=== PATIENT | male | born 1965 ===

== ENCOUNTER 2017-09-04 10:42 | Emergency (ER) | payer OTHER, MEDICAID ==
--- NOTE | 2017-09-04 11:20 | EDPHY ---
General Time Seen by Provider: 09/04/17 11:15 Narrative: CHIEF COMPLAINT: Cough, possible for test this exposure HISTORY OF PRESENT ILLNESS: Patient presents with complaints of cough. Cough started approximately 2 weeks ago and has been worsening over the past 2 days. No fever. Occasionally productive. Some wheezing. No distress or shortness of breath. The concern is that he lives with the patient with a reportedly positive Bordetella pertussis within the past 2 weeks. They live in close encounters to 1 another. The patient also has left renal transplant on prednisone and tacrolimus. The printing engineer provides all the information as the patient does have developmental delay. He has reports of no chest pain. No other associated complaints or modifying factors. REVIEW OF SYSTEMS: Ten systems reviewed and are negative unless otherwise noted in the HPI PCP: Dr. Munroe SPECIALISTS: Dr. Montero, nephrology PAST MEDICAL HISTORY: End-stage renal disease status post transplant. No longer requiring dialysis. Developmental delay, cerebral palsy, osteoarthritis, PAST SURGICAL HISTORY: Multiple. No recent surgery and no pertinent surgery SOCIAL HISTORY: Never smoker. Lives with 24 hr printing engineer and roommate FAMILY HISTORY: Noncontributory EXAMINATION General Appearance: Alert, no distress. Well-developed well-nourished. Head: normocephalic, atraumatic Eyes: Pupils equal and round, no conjunctival pallor or injection ENT, Mouth: Mucous membranes moist. Airway widely patent. Neck: Normal inspection, supple, non-tender Respiratory: Mild expiratory wheezing. No rhonchi. No crackles. No diminishment or consolidation. No distress Cardiovascular: Regular rate and rhythm. No murmur Gastrointestinal: Abdomen is soft and nontender Back: non-tender, no bony abnormalities Neurological: Alert to baseline. Strength is symmetric in the 4 extremities. Normal steady gait with assistive devices. Skin: Warm and dry, no rash Extremities: Nontender, no pedal edema Psychiatric: Mood and affect normal DIFFERENTIAL DIAGNOSES: Including but not limited to Bordetella pertussis, pneumonia, asthma, bronchitis MDM: 11:20 a.m. Cough of nearly 2 weeks duration with increasing cough over the past 2 days. He does have some wheezing throughout but he is in no acute distress put vital signs are within normal limits. The concern from the caretakers that there was a positive case of pertussis in the last 2 weeks in his care home. He has reported allergy to Zithromax and the concern is also his renal transplant as he has been told to avoid some antibiotics by his jig bore operator, but they do not know which ones. He is awake alert no acute distress. Chest x-ray is pending. Respiratory pathogen panel pending. 11:35 a.m. Chest x-ray read as no focal pneumonia. I have discussed with Dr. Perez and he recommends consultation of infectious disease due to the complicated nature. 11:45 a.m. Case discussed with Dr. Haney. We discussed the patient's history, renal transplant and documented allergy to Zithromax. She recommends doxycycline 100 mg twice daily. She states that this must be taken separately from his magnesium and/or calcium is taking. Or to hold the magnesium her calcium while taking the doxycycline. 11:55 a.m. Case discussed with patient's primary care physician Dr. Munroe. We discussed the current therapy and recommend follow-up in 1 week. He will follow up with the patient accordingly. 12:00 p.m. Patient re-evaluated. The caretakers requesting that we consult Nephrology regarding the doxycycline out will do so. 12:05 p.m. Case discussed with Dr. Oliva, Nephrology. We discussed the doxycycline and his current prograf. She recommends calling the [place] office to check Prograf level Monday morning. 12:10 p.m. Patient re-evaluated. I have discussed the doxycycline and avoiding magnesium and calcium. I have discussed albuterol inhaler as needed. I discussed close follow-up with primary care physician and Nephrology. He will need see Nephrology Monday morning 4 tacrolimus level. We discussed that he may need further medication after the 7 days provided if his symptoms are not resolved and he has a positive pertussis test. We discussed ED precautions for worsening symptoms. I have answered all their questions. He is discharged home stable condition with a pending respiratory pathogen panel. I have the patient's permission to leave information regarding this test on his cell phone 1:30 p.m. Respiratory pathogen panel has returned with no organisms detected. A contacted the patient and his printing engineer and informed the this. Continue with previous plan. SUPERVISION: Patient was independently examined, but I discussed the case with my secondary supervising physician Dr. Perez Infectious disease consultation by telephone with Dr. Majo Haney - Diagnostics Imaging Results: Imaging Impressions Chest X-Ray 09/04/17 11:09 Impression: 1. No acute pneumonia identified. 2. Chronic micronodular lung disease, possibly representing metastatic calcification in a patient with a history of chronic renal failure and renal transplantation. - History Smoking Status: Never smoked - Objective Vital Signs: Initial Vital Signs Temperature (C) 98.2 F 09/04/17 10:47 Heart Rate 64 09/04/17 10:47 Respiratory Rate 18 09/04/17 10:47 Blood Pressure 156/99 H 09/04/17 10:47 O2 Sat (%) 96 09/04/17 10:47 O2 Delivery Mode Room Air Allergies/Adverse Reactions: codeine Allergy (Severe, Verified 09/04/17 10:45) Anaphylaxis oxycodone [Oxycodone] Allergy (Severe, Verified 09/04/17 10:45) Anaphylaxis phenytoin sodium [From Dilantin] Allergy (Severe, Verified 09/04/17 10:45) Other-Enter Comments phenytoin sodium extended [From Dilantin] Allergy (Severe, Verified 09/04/17 10: 45) Other-Enter Comments morphine [Morphine] Allergy (Mild, Verified 09/04/17 10:45) Other-Enter Comments aspirin [Aspirin] Allergy (Unknown, Verified 09/04/17 10:45) Unknown azithromycin Allergy (Unknown, Verified 09/04/17 10:45) Other-Enter Comments lamotrigine [From Lamictal] Allergy (Unknown, Verified 09/04/17 10:45) Unknown levetiracetam [From Keppra] Allergy (Unknown, Verified 09/04/17 10:45) Unknown NSAIDS (Non-Steroidal Anti-Inflamma [Nsaids] Allergy (Unknown, Verified 10:45) Unknown ALL BLOOD THINNERS Allergy (Unknown, Uncoded 06/07/11 17:20) Unknown Home Medications: Medication Instructions Recorded Alendronate Sodium [Fosamax 70 MG 70 mg PO MO@07 06/07/11 (*)] Carvedilol [Coreg (*)] 3.125 mg PO BIDMEAL 06/07/11 Cetirizine [ZyrTEC 10 mg (*)] 10 mg PO DAILY 06/07/11 Cholecalciferol Vit D3 [Vitamin D3 2,000 units PO DAILY@1800 06/07/11 (*)] OXcarbazepine [Trileptal 300mg (*)] 600 mg PO 0800,209906/07/11 Omeprazole [Prilosec 20 mg] 20 mg PO DAILY 06/07/11 Tacrolimus [Prograf] 2 mg PO DAILY 06/07/11 diphenhydrAMINE [Benadryl 25 MG 25 mg PO BID 06/07/11 (*)] predniSONE 7.5 mg PO DAILY 06/07/11 Acetaminophen [Tylenol 325mg (*)] 650 mg PO Q6 PRN 07/10/13 Desonide 0.05% [Desonide 0.05% 1 enzo TP BID PRN 07/10/13 Cream (*)] Docusate Sodium [Colace 100 MG (*)] 100 - 300 mg PO DAILY PRN 07/10/13 Hydrocortisone 1% [Hydrocortisone 1 enzo TP DAILY PRN 07/10/13 1% cream (*)] Ketoconazole 2% [Nizoral 2% Cream 1 enzo TP BID PRN 07/10/13 (*)] Lactulose [Cephulac 20 gm/30 ml 15 - 30 gm PO DAILY PRN 07/10/13 oral soln (*)] Magnesium Oxide [Magnesium Oxide 400 mg PO TIDMEAL 07/10/13 400 mg (*)] Miconazole Nitrate [Desenex] 1 enzo TP DAILY PRN 07/10/13 Neomy Sulf/Bacitrac Zn/Poly 1 enzo TP DAILY PRN 07/10/13 [Triple Antibiotic Oint tube (*)] Prochlorperazine Maleate 10 mg PO Q6 PRN 07/10/13 [Compazine 10mg (*)] Tears/Hypromellose [Natural 1 drop EACHEYE PRN PRN 07/10/13 Balance (OTC)] diphenhydrAMINE [Benadryl Cream] 1 enzo TP DAILY PRN 07/10/13 guaiFENesin/DEXTROMETHORPHAN 10 ml PO Q6 PRN 07/10/13 [Robitussin Dm Oral Liquid (*)] Mycophenolate Sodium [Myfortic] 360 mg PO 0900,209903/07/14 Potassium Citrate [Urocit-K 10meq 20 meq PO HS 03/07/14 (*)] Potassium Citrate [Urocit-K 10meq 30 meq PO DAILY 03/07/14 (*)] Tacrolimus [Prograf] 3 mg PO HS 03/07/14 Cholecalciferol (Vitamin D3) 2,000 unit PO DAILY 03/10/14 [Vitamin D3] Albuterol [Proventil Inhaler HFA 1 - 2 puffs IH Q4H PRN #1 mdi 09/04/17 (*)] Doxycycline Hyclate 100 mg PO BID #13 capsule 09/04/17 Microbiology Results: MICROBIOLOGY 09/04/17 11:25 Nasal, Sinus - Swab Respiratory Panel (PCR) - Final No Organism Detected Medications Given: Discontinued Medications Doxycycline Hyclate (Doxycycline Hyclate) 100 mg PO EDNOW ONE PRN Reason: Protocol Stop: 09/04/17 11:52 Last Admin: 09/04/17 12:05 Dose: 100 mg Departure - Departure Disposition: Home, Routine, Self-Care Clinical Impression: Pertussis exposure, Renal transplant recipient Acute bronchitis Qualifiers: Bronchitis organism: unspecified organism Qualified Code(s): J20.9 - Acute bronchitis, unspecified Condition: Good Instructions: Acute Bronchitis (ED), Pertussis (ED), Postexposure Prophylaxis ( ED) Additional Instructions: 1. Doxycycline twice daily for 7 days. Do not take with magnesium or calcium supplements. You must wait 2 hr between the medications. Or you may hold the magnesium and calcium. 2. Albuterol inhaler. 1-2 puffs every 4 hr as needed for wheezing 3. Follow up with primary care physician within 1 week 4. ED precautions as discussed 5. You have a respiratory pathogen panel that is pending. I will contact you with the results later this afternoon. Referrals: Bruno Munroe DO [Primary Care Provider] - As per Instructions Prescriptions: Albuterol [Proventil Inhaler HFA (*)] 1 - 2 puffs IH Q4H PRN #1 mdi PRN Reason: Short Of Breath/Dyspnea Doxycycline Hyclate 100 mg PO BID #13 capsule
[2017-09-04] MEDS ORDERED: DOXYCYCLINE HYCLATE 100 MG CAP/TAB PO ONE (11:51)
[2017-09-04 12:09] VITALS: BP 150/80
== END 2017-09-04 12:31 | disposition home or self-care (01) ==
DX: J20.9 Acute bronchitis, unspecified (principal)

== ENCOUNTER 2018-03-03 09:33 | Emergency (ER) | payer OTHER, MEDICAID ==
[2018-03-03 09:49] VITALS: BP 128/88
--- NOTE | 2018-03-03 10:18 | EDPHY ---
H & P Time Seen by Provider: 03/03/18 09:38 HPI/ROS: CHIEF COMPLAINT: Bruising to flank HISTORY OF PRESENT ILLNESS: Per caregiver, patient with bruises to right flank/ axillary area noticed today while in the shower. Patient was unaware of these bruises and complains of no pain. Patient did have a rash more anterior but in the same general region as this area of ecchymosis on Monday. They applied hydrocortisone cream and rash had disappeared by . Patient denies any trauma. Patient did have to dizzy spells, which are not unusual for him, over the last several days with the most recent 1 on strategic planning manager. Currently no dizziness, headache, fevers, chills. Patient has no nausea, vomiting, diarrhea, abdominal pain. No report of blood per rectum or in vomit. Patient without dysuria. Patient with complex past medical history including kidney transplant 2010. He did have baseline labs drawn per Dr. Montero 3 weeks ago. He had platelets of 102 at that time which is near baseline. Hemoglobin hematocrit were 15 and 44 respectively %period% creatinine 1.1. No new medications reported. Contents of 10 point review of systems otherwise negative except for what is mentioned in HPI. General Appearance: Alert, no distress. Eyes: Pupils equal and round no pallor or injection. ENT, Mouth: Mucous membranes moist. Respiratory: There are no retractions, lungs are clear to auscultation. No tenderness to chest wall. No crepitus. Several small scattered bruises to right lateral chest wall. Appear days old. Cardiovascular: Regular rate and rhythm. Gastrointestinal: Abdomen is soft and nontender, no masses, bowel sounds normal. Neurological: Awake and alert, movement all 4 extremities, at baseline with developmental delay. Skin: Warm and dry, no rashes. Musculoskeletal: Neck is supple nontender. Extremities are symmetrical, baseline range of motion. Orthotics to both lower extremities. Psychiatric: Patient is cooperative. Medical/surgical history: Cerebral palsy with developmental delay. Left renal transplant 2010. Dialysis prior to transplant. Kidney stones. Right hip replacement 2009. Seizure disorder. Social history: Lives in retirement. Nonsmoker. Smoking Status: Never smoked Constitutional: Initial Vital Signs Temperature (C) 37 C 03/03/18 09:41 Heart Rate 62 03/03/18 09:41 Respiratory Rate 16 03/03/18 09:41 Blood Pressure 128/88 H 03/03/18 09:41 O2 Sat (%) 99 03/03/18 09:41 O2 Delivery Mode Room Air Allergies/Adverse Reactions: codeine Allergy (Severe, Verified 03/03/18 09:51) Anaphylaxis oxycodone [Oxycodone] Allergy (Severe, Verified 03/03/18 09:51) Anaphylaxis phenytoin sodium [From Dilantin] Allergy (Severe, Verified 03/03/18 09:51) Other-Enter Comments phenytoin sodium extended [From Dilantin] Allergy (Severe, Verified 03/03/18 09: 51) Other-Enter Comments morphine [Morphine] Allergy (Mild, Verified 03/03/18 09:51) Other-Enter Comments aspirin [Aspirin] Allergy (Unknown, Verified 03/03/18 09:51) Unknown azithromycin Allergy (Unknown, Verified 03/03/18 09:51) Other-Enter Comments lamotrigine [From Lamictal] Allergy (Unknown, Verified 03/03/18 09:51) Unknown levetiracetam [From Keppra] Allergy (Unknown, Verified 03/03/18 09:51) Unknown NSAIDS (Non-Steroidal Anti-Inflamma [Nsaids] Allergy (Unknown, Verified 09:51) Unknown topiramate [From Topamax] Allergy (Verified 03/03/18 09:51) ALL BLOOD THINNERS Allergy (Unknown, Uncoded 03/03/18 09:51) Unknown Home Medications: Medication Instructions Recorded Alendronate Sodium [Fosamax 70 MG 70 mg PO MO@07 06/07/11 (*)] Carvedilol [Coreg (*)] 3.125 mg PO BIDMEAL 06/07/11 Cetirizine [ZyrTEC 10 mg (*)] 10 mg PO DAILY 06/07/11 Cholecalciferol Vit D3 [Vitamin D3 2,000 units PO DAILY@1800 06/07/11 (*)] OXcarbazepine [Trileptal 300mg (*)] 600 mg PO 0800,2100 06/07/11 Omeprazole [Prilosec 20 mg] 20 mg PO DAILY 06/07/11 Tacrolimus [Prograf] 2 mg PO DAILY 06/07/11 diphenhydrAMINE [Benadryl 25 MG 25 mg PO BID 06/07/11 (*)] predniSONE 7.5 mg PO DAILY 06/07/11 Acetaminophen [Tylenol 325mg (*)] 650 mg PO Q6 PRN 07/10/13 Desonide 0.05% [Desonide 0.05% 1 enzo TP BID PRN 07/10/13 Cream (*)] Docusate Sodium [Colace 100 MG (*)] 100 - 300 mg PO DAILY PRN 07/10/13 Hydrocortisone 1% [Hydrocortisone 1 enzo TP DAILY PRN 07/10/13 1% cream (*)] Ketoconazole 2% [Nizoral 2% Cream 1 enzo TP BID PRN 07/10/13 (*)] Lactulose [Cephulac 20 gm/30 ml 15 - 30 gm PO DAILY PRN 07/10/13 oral soln (*)] Magnesium Oxide [Magnesium Oxide 400 mg PO TIDMEAL 07/10/13 400 mg (*)] Miconazole Nitrate [Desenex] 1 enzo TP DAILY PRN 07/10/13 Neomy Sulf/Bacitrac Zn/Poly 1 enzo TP DAILY PRN 07/10/13 [Triple Antibiotic Oint tube (*)] Prochlorperazine Maleate 10 mg PO Q6 PRN 07/10/13 [Compazine 10mg (*)] Tears/Hypromellose [Natural 1 drop EACHEYE PRN PRN 07/10/13 Balance (OTC)] diphenhydrAMINE [Benadryl Cream] 1 enzo TP DAILY PRN 07/10/13 guaiFENesin/DEXTROMETHORPHAN 10 ml PO Q6 PRN 07/10/13 [Robitussin Dm Oral Liquid (*)] Mycophenolate Sodium [Myfortic] 360 mg PO 0900,2100 03/07/14 Potassium Citrate [Urocit-K 10meq 20 meq PO HS 03/07/14 (*)] Potassium Citrate [Urocit-K 10meq 30 meq PO DAILY 03/07/14 (*)] Tacrolimus [Prograf] 3 mg PO HS 03/07/14 Cholecalciferol (Vitamin D3) 2,000 unit PO DAILY 03/10/14 [Vitamin D3] Albuterol [Proventil Inhaler HFA 1 - 2 puffs IH Q4H PRN #1 mdi 09/04/17 (*)] Doxycycline Hyclate 100 mg PO BID #13 capsule 09/04/17 Medical Decision Making Differential Diagnosis: Differential diagnosis includes but is not limited to minor trauma, thrombocytopenia, herpes zoster. After evaluation small area of bruising most likely due to minor trauma related to scratching of his rash last week. No signs of other easy bleeding or bruising to suggest significant thrombocytopenia. Lower no suspicion for internal injury or hemorrhage. No persistent rash to suggest herpes zoster. Discussed conservative care and return precautions in detail. Stable for outpatient follow-up. Departure - Departure Clinical Impression: Ecchymosis on examination Condition: Good Instructions: Ecchymosis (ED) Additional Instructions: Keep an eye on the bruises. If they become larger, more widespread, follow up with your primary care physician or your import export agent for recheck. If you develope any other concerning symptoms please return to the emergency department. Referrals: Bruno Munroe, [Primary Care Provider] - As per Instructions
== END 2018-03-03 10:25 | disposition home or self-care (01) ==
LOC: CED 09:33
DX: R23.3 Spontaneous ecchymoses (principal); Z94.0 Kidney transplant status; G80.9 Cerebral palsy, unspecified
CPT/HCPCS: 99282-ER